=== PATIENT | male | born 2005 | race Caucasian/White ===

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

== ENCOUNTER 2023-06-04 22:14 | Emergency (ER) | payer OTHER ==
[~2023-06-04] VITALS: Ht 188 cm; Wt 78.9 kg
[2023-06-04 22:33] VITALS: BP 148/99; PULSE 78; RESP 20; TEMP 98.5; O2SAT 98
[2023-06-05 01:41] VITALS: O2SAT 98
[2023-06-05] MEDS ORDERED: CHLO473S62 PO (02:13)
[2023-06-05] MEDS ORDERED: BACITRACIN OINT 500 UNITS/GM PKT TP ONE (02:15)
[2023-06-05 02:40] VITALS: BP 148/99; PULSE 78; RESP 20; TEMP 98.5; O2SAT 98
== END 2023-06-05 02:40 | disposition home or self-care (01) ==
LOC: MED 22:14
DX: S01.512A Laceration without foreign body of oral cavity, initial encounter (principal); Z79.899 Other long term (current) drug therapy; W23.0XXA Caught, crushed, jammed, or pinched between moving objects, initial encounter; Y93.89 Activity, other specified; Y92.89 Other specified places as the place of occurrence of the external cause; Y99.8 Other external cause status
CPT/HCPCS: 99282